=== PATIENT | female | born 1940 | race Caucasian/White ===

== ENCOUNTER 2018-12-11 06:55 | Day surgery (SDC) | payer MEDICARE, OTHER ==
[~2018-12-11] VITALS: Ht 160 cm; Wt 59.0 kg
[~2018-12-11 06:55] MED LIST: SODIUM CHLORIDE 0.9% 1,000 ML IV ONE
[2018-12-11] MEDS ORDERED: LIDOCAINE 2% 11 ML JELLY TP ONE (06:56)
[2018-12-11] MEDS ORDERED: LIDOCAINE 4% 50 ML SOLUTION TP ONE (06:56)
[2018-12-11] MEDS ORDERED: BENZOCAINE 20% 50 MCG/SPRAY 57 GM TP ONE (06:56)
[2018-12-11] MEDS ORDERED: MONT10TA21 PO (07:35)
[2018-12-11] MEDS ORDERED: FURO20 PO (07:35)
[2018-12-11] MEDS ORDERED: PRED10 PO (07:35)
[2018-12-11] MEDS ORDERED: SIMV-260 PO (07:35)
[2018-12-11] MEDS ORDERED: PROM6.2522 PO (07:35)
[2018-12-11] MEDS ORDERED: PRAZ1 PO (07:35)
[2018-12-11] MEDS ORDERED: FLUT1BLS IH (07:35)
[2018-12-11] MEDS ORDERED: METO25XL PO (07:35)
[2018-12-11] MEDS ORDERED: APIX2.5T PO (07:35)
[2018-12-11] MEDS ORDERED: LISI-660 PO (07:35)
[2018-12-11] MEDS ORDERED: OMEP20 PO (07:35)
[2018-12-11] MEDS ORDERED: DOXY50CA7 PO (07:35)
[2018-12-11] MEDS ORDERED: SODIUM CHLORIDE 0.9% 1,000 ML IV ONE (07:56)
[2018-12-11] MEDS ORDERED: FentaNYL CITRATE-PF 100 MCG/2 ML VIAL ONE (08:05)
[2018-12-11] MEDS ORDERED: MIDAZOLAM HCL 2 MG/2 ML VIAL ONE (08:05)
[2018-12-11] MEDS ORDERED: MethylPREDNISolone SOD SUCC 125 MG/2 ML VIAL IVP ONE (09:00)
[2018-12-11] MEDS ORDERED: MethylPREDNISolone SOD SUCC 125 MG/2 ML VIAL ONE (09:07)
[2018-12-11] MEDS ORDERED: OXYGEN THERAPY IH SCH (20:00)
== END 2018-12-11 10:25 | disposition home or self-care (01) ==
LOC: EDSEX 06:55 → SURGERY 06:55
PROVIDERS: ATTEND Internal Medicine Critical Care Medicine
DX: J38.4 Edema of larynx (principal); B37.0 Candidal stomatitis; I50.9 Heart failure, unspecified; I11.0 Hypertensive heart disease with heart failure; Z98.890 Other specified postprocedural states
CPT/HCPCS: 31623; 31624; 71045; 87015; 87070; 87101; 87205; 87206; 87220; 88108; 88312; J2250; J2930; J3010; J7030